=== PATIENT | female | born 1995 | race Caucasian/White ===

== ENCOUNTER 2017-11-27 20:31 | Emergency (ER) | payer OTHER ==
[~2017-11-27] VITALS: Ht 162.6 cm; Wt 56.8 kg
[2017-11-27 20:40] VITALS: BP 143/77; PULSE 70; TEMP 97.5
[2017-11-27] MEDS ORDERED: DOXYCYCLINE 10100 MG PO (20:43)
[2017-11-27] MEDS ORDERED: NORCO 325 MG-51 TAB PO (21:46)
== END 2017-11-27 21:59 | disposition home or self-care (01) ==
LOC: COL.ER 20:31
DX: S00.33XA Contusion of nose, initial encounter (principal); Y93.01 Activity, walking, marching and hiking; W00.0XXA Fall on same level due to ice and snow, initial encounter